=== PATIENT | female | born 1970 | race Caucasian/White ===

== ENCOUNTER 2024-10-19 07:21 | Outpatient (RCR) | payer BC, SELFPAY | END 2024-10-19 23:59 | disposition home or self-care (01) | LOC: ROT 07:21 | PROVIDERS: ATTENDING PHYSICIAN Physician Assistant Medical | DX: S52.552D Other extraarticular fracture of lower end of left radius, subsequent encounter for closed fracture with routine healing (principal); S52.615D Nondisplaced fracture of left ulna styloid process, subsequent encounter for closed fracture with routine healing; Z73.6 Limitation of activities due to disability | CPT/HCPCS: 97022; 97166; 97535 ==

== ENCOUNTER 2024-11-11 14:01 | Outpatient (RCR) | payer BC, SELFPAY | END 2024-11-11 23:59 | disposition home or self-care (01) | LOC: ROT 14:01 | PROVIDERS: ATTENDING PHYSICIAN Physician Assistant Medical | DX: S52.552D Other extraarticular fracture of lower end of left radius, subsequent encounter for closed fracture with routine healing (principal); S52.615D Nondisplaced fracture of left ulna styloid process, subsequent encounter for closed fracture with routine healing; Z73.6 Limitation of activities due to disability; X58.XXXD Exposure to other specified factors, subsequent encounter | CPT/HCPCS: 97022; 97110 ==

== ENCOUNTER 2024-12-02 13:58 | Outpatient (RCR) | payer BC, SELFPAY | END 2024-12-03 07:20 | disposition home or self-care (01) | LOC: ROT 13:58 | PROVIDERS: ATTENDING PHYSICIAN Physician Assistant Medical | DX: S52.552D Other extraarticular fracture of lower end of left radius, subsequent encounter for closed fracture with routine healing (principal); S52.615D Nondisplaced fracture of left ulna styloid process, subsequent encounter for closed fracture with routine healing; Z73.6 Limitation of activities due to disability; X58.XXXD Exposure to other specified factors, subsequent encounter | CPT/HCPCS: 97022; 97110 ==